=== PATIENT | female | born 1990 | race Caucasian/White ===

== ENCOUNTER 2020-09-27 23:32 | Emergency (ER) | payer OTHER, SELFPAY ==
[2020-09-27 23:38] VITALS: BP 113/79; PULSE 53; RESP 20; TEMP 36.9; O2SAT 100
[2020-09-28] MEDS: MORPHINE SULFATE (*CRX) 4 MG/ML INJ IV PUSH ×2 (00:29→02:06)
--- NOTE | 2020-09-28 01:27 | ED.GENADULT ---
HPI - General Adult General Chief complaint: Abdominal Pain Stated complaint: POST OP PAIN Time Seen by Provider: 09/27/20 23:48 History of Present Illness HPI narrative: Patient is a 30-year-old female who presents the emergency department with chief complaint of abdominal pain. Patient reports that she had a hernia repair today at another facility and left the facility after she was having some issues with the nursing staff. The patient did not get any prescriptions for pain medications and states that she is having severe pain in her abdomen. Patient denies fever denies draining from the incision. Related Data Allergies Allergy/AdvReac Type Severity Reaction Status Date / Time gabapentin AdvReac Unknown Verified 09/27/20 23:54 ketorolac [From Toradol] AdvReac Unknown Verified 09/27/20 23:54 Review of Systems Review of Systems: Narrative: A 10 system review of systems was completed on the patient and is negative except for what is stated in the HPI. Nursing and ancillary documentation was reviewed. PMFSH Comments Patient has history of abdominal hernia and hernia repair with mesh removal Social history the patient denies illicit drug use Exam Narrative: Exam Narrative: GENERAL: Well-appearing, well-nourished, and in no acute distress. HEAD: Normocephalic, atraumatic. EYES: PERRLA and EOMI. ENT: Nares clear, no rhinorrhea or epistaxis. Mucous membranes moist. NECK: Supple. CHEST: Clear to auscultation. No respiratory distress. HEART: Regular rate and rhythm. No murmur heard. Normal peripheral pulses. ABDOMEN: Soft, nontender, nondistended, normal active bowel sounds. There is a midline incision present with dressing intact there is no bleeding or drainage from the site. EXTREMITIES: Normal range of motion. No edema. SKIN: Warm, dry, no rash. NEURO: No focal deficits. Alert and oriented x3. PSYCH: Normal mood and affect. Course Course Emergency Course: The case was discussed with the patient's primary surgeon who recommended pain control and if the patient is able to tolerate oral medications outpatient follow-up with oral pain medications. Vital Signs Vital signs: Vital Signs Temperature 36.9 C 09/27/20 23:38 Pulse Rate 53 L 09/27/20 23:38 Respiratory Rate 20 09/27/20 23:38 Blood Pressure 113/79 09/27/20 23:38 Pulse Oximetry 100 09/27/20 23:38 Temperature 36.9 C 09/27/20 23:38 Pulse Rate 53 L 09/27/20 23:38 Respiratory Rate 20 09/27/20 23:38 Blood Pressure 113/79 09/27/20 23:38 Pulse Oximetry 100 09/27/20 23:38 Medical Decision Making Vital Signs Vital Signs: Vital Signs Temperature 36.9 C 09/27/20 23:38 Pulse Rate 53 L 09/27/20 23:38 Respiratory Rate 09/27/20 23:38 Blood Pressure 113/79 09/27/20 23:38 Pulse Oximetry 100 09/27/20 23:38 Temperature 36.9 C 09/27/20 23:38 Pulse Rate 53 L 09/27/20 23:38 Respiratory Rate 09/27/20 23:38 Blood Pressure 113/79 09/27/20 23:38 Pulse Oximetry 100 09/27/20 23:38 Discharge Plan Discharge Clinical Impression: Postoperative abdominal pain Patient Disposition: Home, Self-Care Condition: Stable Instructions: Antibiotic Form, Pain Management After Surgery (DC) Prescriptions: New hydrocodone-acetaminophen [[place]] 5-325 mg tablet 1 tablet PO Q6H PRN (Reason: pain) 3 Days Qty: 12 RF: 0 Follow-up/Referrals: YULIET,MELIDA Isbell M.D. [Primary Care Provider] - Time of Disposition: 01:38
[2020-09-28 02:27] VITALS: BP 114/73; PULSE 77; RESP 16; TEMP 36.6; O2SAT 97
== END 2020-09-28 02:27 | disposition home or self-care (01) ==
PROVIDERS: Emergency Provider Emergency Medicine; PCP Obstetrics & Gynecology
DX: G89.18 Other acute postprocedural pain (principal); R10.9 Unspecified abdominal pain
CPT/HCPCS: 96374; 96376; 99284; J2270